=== PATIENT | male | born 1990 | race Caucasian/White ===

== ENCOUNTER 2016-10-27 03:34 | Emergency (ER) | payer BC ==
[~2016-10-27] VITALS: Ht 177.8 cm; Wt 65.3 kg
[2016-10-27 03:41] VITALS: TEMP 37.2; Ht 177.8 cm; Wt 65.3 kg
[2016-10-27] MEDS ORDERED: AMOXICILLIN HOME PACK 250 MG/TAB PO ONE (04:00)
[2016-10-27] MEDS ORDERED: AMOX500C3 PO (04:01)
[2016-10-27 04:14] VITALS: BP 122/67; PULSE 84; O2SAT 96
--- NOTE | 2016-10-27 06:32 | EMERGENCY ROOM VISIT NOTE ---
ED Visit Note First contact with patient: 03:50 CHIEF COMPLAINT: Sore throat HISTORY OF PRESENT ILLNESS: This 26 year old male patient presents to the emergency department complaining of increasing pain in the throat, gradual in onset, worse with swallowing. They rate the pain as sharp and 7/10. They are able to swallow. The patient has not had a fever. No rash. Denies any posterior neck pain or stiffness. No difficulty breathing. Symptoms came on gradually. There has been no chest pain, no abdominal pain, no nausea or vomiting. Patient denies any cough, rhinorrhea, congestion, or ear pain. The patient has taken nothing for their symptoms. REVIEW OF SYSTEMS: A 6 system review of systems was completed with pertinent positives and negatives in the HPI. ALLERGIES: nkda MEDICATIONS: No chronic medications PMH: Otherwise Healthy SOCIAL HISTORY: Lives locally PHYSICAL EXAM: Vital Signs: Reviewed Nurse's notes. GENERAL: White male, in no acute distress, non toxic in appearance, well developed, well nourished. MENTAL STATUS: Alert and oriented to person place and time. SKIN: Clear and dry, no eruptions, or rashes. No cyanosis, no petechiae. EARS: External auditory canals clear, tympanic membrane pearly davepnort without erythema or effusion bilaterally. EYES: Pupils equal round and reactive to light and accommodation. Conjunctivae without injection, sclerae without icterus. Extraocular movements intact. NOSE: Patent, turbinates inflammed with no discharge. No sinus tenderness. MOUTH: Mucous membranes moist. Tonsils are enlarged and with right sided erythema and exudate. The Pharynx is inflamed and slightly swollen. Pharynx without postnasal drip. Uvula is midline and no abscess is seen. NECK: Supple without nuchal rigidity. Anterior cervical lymphadenopathy without posterior cervical, or auricular, or submandibular lymphadenopathy. HEART: Regular rate and rhythm without murmurs gallops or rubs. LUNGS: Clear to auscultation bilaterally without wheezes, rales or rhonchi. ABDOMEN: Positive bowel sounds x 4. Normal tympanic percussion. Soft, nontender, without masses or organomegaly. ED COURSE: I examined the patient. He has a fairly significant right-sided tonsillitis. The patient does not have evidence of abscess or airway compromise. He'll be treated as below and instructed to follow with his primary care physician for ongoing care and management. Current/Historical Medications Scheduled Amoxicillin (Amoxil), 500 MG PO TID Vital Signs Date Time Temp Pulse Resp B/P (MAP) Pulse Ox O2 Delivery O2 Flow Rate FiO2 10/27/16 04:14 84 18 122/67 96 10/27/16 03:41 37.2 88 18 125/77 97 Room Air 10/27/16 03:41 97 Room Air Medications Administered Medications (Trade) Dose Ordered Sig/Oscar Route Start Time Stop Time Status Last Admin Dose Admin Amoxicillin (Amoxil 250MG Home Pack) 1 homepack UD ONCE PO 10/27/16 04:00 10/27/16 04:01 DC 10/27/16 04:12 1 HOMEPACK Departure Information Impression Primary Impression: Sore throat Dispostion Home / Self-Care Condition GOOD Prescriptions Amoxicillin (AMOXIL) 500 Mg Cap 500 MG PO TID for 10 Days, #30 CAP Prov: Familia De Luna PA-C 10/27/16 Forms HOME CARE DOCUMENTATION FORM, IMPORTANT VISIT INFORMATION Patient Instructions My [facility] Additional Instructions You were seen and evaluated today on an emergency basis only. This is not a substitute for, or an effort to provide, complete comprehensive medical care. It is not possible to recognize and treat all injuries or illnesses in a single emergency department visit. For this reason it is recommended that you followup with your primary care physician with any ongoing or persistent symptoms. For baseline pain relief you may alternate ibuprofen and acetaminophen every 4 hours for pain control. Take 600 mg ibuprofen (Advil) and then 4 hours later take 1000 mg acetaminophen (Tylenol). Do not take more than 3000 mg acetaminophen in a single day. Take amoxicillin 500 mg 3 times daily as prescribed You are welcome to return to the emergency department anytime with new, worsening, or concerning symptoms.
== END 2016-10-27 04:14 | disposition home or self-care (01) ==
LOC: C.EDB 03:36 → C.EDA 04:14
DX: J02.9 Acute pharyngitis, unspecified (principal)

== ENCOUNTER 2016-11-23 23:56 | Emergency (ER) | payer BC, OTHER ==
[~2016-11-23] VITALS: Ht 177.8 cm; Wt 70.0 kg
[2016-11-23 23:59] VITALS: TEMP 37.1; Ht 177.8 cm; Wt 70.0 kg
[2016-11-24] MEDS ORDERED: SODIUM CHLORIDE 0.9% 1000ML 1,000 ML IV STA (00:02)
[2016-11-24 00:15] VITALS: O2SAT 97
[2016-11-24] MEDS ORDERED: OPTIRAY 320 IV PRN (00:15)
[2016-11-24 00:17] LABS: ISTAT CREATININE 1.5 mg/dl (0.6-1.3); ISTAT HEMOGLOBIN 15.6 g/dl (14.0-18.0); ISTAT IONIZED CALCIUM 1.04 mmol/l (1.12-1.32)
[2016-11-24 00:21] LABS: HEMATOCRIT 45.9 % (42-52); MEAN CELL VOLUME 91.6 fL (80-100); MEAN CORPUSCULAR HEMOGLOBIN 31.7 pg (25-34); MEAN CORPUSCULAR HGB CONC 34.6 g/dl (32-36); MEAN PLATELET VOLUME 8.9 fL (7.4-10.4); PLATELET COUNT 230 K/uL (130-400); RED BLOOD COUNT 5.01 M/uL (4.7-6.1)
[2016-11-24 00:32] LABS: PROTHROMBIN TIME (PATIENT) 10.6 SECONDS (9.0-12.0)
[2016-11-24] MEDS ORDERED: PATIENT'S ALLERGY INFO NEEDS ENTERED STA (00:33)
[2016-11-24 00:48] LABS: ALKALINE PHOSPHATASE 57 U/L (45-117); ALT/SGPT 49 U/L (12-78); AST/SGOT 37 U/L (15-37); BLOOD UREA NITROGEN 10 mg/dl (7-18); BUN/CREATININE RATIO 8.1 (10-20); CALCIUM 7.9 mg/dl (8.5-10.1); CARBON DIOXIDE 22 mmol/L (21-32); CHLORIDE 110 mmol/L (98-107); GLUCOSE 98 mg/dl (70-99); SODIUM 142 mmol/L (136-145)
[2016-11-24 00:49] LABS: BASO ABS # 0.07 K/uL (0-0.2); BASOPHIL % 0.9 % (0-2); COMPLETE YES; EOSINOPHIL % 3.5 %; LYMPH ABS # 2.58 K/uL (1.2-3.4); LYMPHOCYTE % 34.8 %; MYELOCYTE % 0.9 %; NEUTROPHILS % 36.4 %; VARIANT LYM ABS # 1.22 K/uL; VARIANT LYMPHOCYTE % 16.5 %
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
[2016-11-24 06:07] VITALS: BP 130/74; PULSE 93; O2SAT 96
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
--- NOTE | 2016-11-24 06:25 | DIAGNOSTIC IMAGING REPORT ---
RIGHT TIBIA/FIBULA 2 VIEWS ROUTINE CLINICAL HISTORY: 26 years-old Male presenting with rle pain Right. TECHNIQUE: Frontal and lateral views of the right lower leg were obtained. COMPARISON: None. FINDINGS: Obliquely oriented fracture of the proximal to mid diaphysis of the fibula with one half shaft width anterior displacement of the distal fracture fragment and only minimal apex posterior angulation. No fracture of the tibia is evident. Knee joint and ankle mortise grossly congruent. No soft tissue emphysema to suggest an open fracture. IMPRESSION: Mildly displaced fracture of the proximal to mid diaphysis of the fibula with only minimal angulation. Electronically signed by: Tr Culp M.D. 11/24/2016 6:24 AM Dictated Date/Time: 11/24/2016 6:21 AM
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
== END 2016-11-24 06:21 | disposition still patient (30) ==
LOC: EDBD 23:56 → C.ED 23:57 → C.EDC 11-24 06:21
DX: S82.401A Unspecified fracture of shaft of right fibula, initial encounter for closed fracture (principal); V09.9XXA Pedestrian injured in unspecified transport accident, initial encounter; R91.1 Solitary pulmonary nodule; S01.01XA Laceration without foreign body of scalp, initial encounter; Y90.6 Blood alcohol level of 120-199 mg/100 ml